=== PATIENT | female | born 1975 ===

== ENCOUNTER 2017-03-05 08:41 | Emergency (ER) | payer BC ==
--- NOTE | 2017-03-05 09:07 | UC ---
Throat Pain/Nasal [place] HPI - HPI Summary HPI Summary: 41 Y/O female presents with C/O throat pain x 1 day with fever, chills and vomiting x 1 episode. Denies dyspnea, cough, abdominal pain, or nausea today. Medications and medical history reviewed during this visit. - History of Current Complaint Chief Complaint: UCGeneralIllness Stated Complaint: THROAT PAIN Time Seen by Provider: 03/05/17 08:53 Hx Last Menstrual Period: mirena - Allergies/Home Medications Allergies/Adverse Reactions: Allergies Allergy/AdvReac Type Severity Reaction Status Date / Time No Known Allergies Allergy Verified 03/05/17 08:44 Home Medications: Home Medications Escitalopram (NF) [Lexapro 10 mg (NF)] 10 mg PO DAILY 03/05/17 [History Confirmed 03/05/17] Levonorgestrel (Iud) [Mirena IUD] 1 03/05/17 [History] Loratadine 10 mg PO DAILY 03/05/17 [History Confirmed 03/05/17] Multiple Vitamin [Multi Vitamin] 1 tab PO DAILY 03/05/17 [History Confirmed ] PMH/Surg Hx/FS Hx/Imm Hx Previously Healthy: Yes - Surgical History Surgical History: None - Family History Known Family History: Positive: None - Social History Occupation: Employed Full-time Alcohol Use: Occasionally Substance Use Type: None Smoking Status (MU): Never Smoked Tobacco Review of Systems Constitutional: Fever, Chills Skin: Negative Eyes: Negative ENT: Negative Respiratory: Negative Cardiovascular: Negative Gastrointestinal: Negative Genitourinary: Negative Motor: Negative Neurovascular: Negative Musculoskeletal: Arthralgia Neurological: Negative Psychological: Negative Is Patient Immunocompromised?: No All Other Systems Reviewed And Are Negative: Yes Physical Exam Triage Information Reviewed: Yes Appearance: Well-Appearing Vital Signs: Initial Vital Signs Temp 98.8 F 03/05/17 08:46 Pulse 89 03/05/17 08:46 Resp 18 03/05/17 08:46 BP 117/72 03/05/17 08:46 Pulse Ox 100 03/05/17 08:46 Vital Signs Reviewed: Yes Eye Exam: Normal ENT: Positive: Pharyngeal erythema Neck exam: Normal Neck: Positive: Nontender, No Lymphadenopathy Respiratory Exam: Normal Respiratory: Positive: Lungs clear, Normal breath sounds Cardiovascular Exam: Normal Cardiovascular: Positive: RRR Abdominal Exam: Normal Abdomen Description: Positive: Nontender Bowel Sounds: Positive: Present Musculoskeletal Exam: Normal Musculoskeletal: Positive: Strength Intact Neurological Exam: Normal Neurological: Positive: Alert Psychological Exam: Normal Skin Exam: Normal Throat Pain/Nasal Course/Dx - Differential Dx/Diagnosis Differential Diagnosis/HQI/PQRI: Pharyngitis, Tonsillitis, URI Provider Diagnoses: Strep Throat Discharge - Discharge Plan Condition: Stable Disposition: HOME Patient Education Materials: Strep Throat (ED) Additional Instructions: Your rapid strep screening was positive. You have been prescribed an antibiotic , please take as directed. Follow up with your primary care provider or return to the urgent care if symptoms do not improve or if you are unable to swallow liquids.
== END 2017-03-05 09:31 | disposition home or self-care (01) ==
LOC: UCEAST 08:41
DX: J02.0 Streptococcal pharyngitis (principal)
CPT/HCPCS: 87651; 99202; G0463

== ENCOUNTER 2018-08-28 10:46 | Emergency (ER) | payer BC ==
[2018-08-28 11:16] VITALS: BP 115/80
--- NOTE | 2018-08-28 11:19 | UC ---
Respiratory Complaint HPI - HPI Summary HPI Summary: 43 yo female presents with cough and sinus pain/pressure/congestion for the last week. She tells me that last night her cough got worse and she felt a little short of breath and developed a productive cough. She has a history of asthma and has been using her albuterol inhaler with mild relief. She has not been taking anything OTC. Denies fever, chills, sore throat, chest pain, rash. - History of Current Complaint Chief Complaint: UCRespiratory Stated Complaint: CHEST CONGESTION Time Seen by Provider: 08/28/18 11:19 Hx Obtained From: Patient Hx Last Menstrual Period: IUD in place Onset/Duration: Gradual Onset Severity Initially: Mild Severity Currently: Moderate Pain Intensity: 4 Pain Scale Used: 0-10 Numeric Character: Cough: Productive - Allergies/Home Medications Allergies/Adverse Reactions: Allergies Allergy/AdvReac Type Severity Reaction Status Date / Time environmental Allergy Congestion Uncoded 08/28/18 11:16 Home Medications: Home Medications Albuterol HFA INHALER* [Ventolin HFA Inhaler*] 1 puff INH Q4H PRN 08/28/18 [ History Confirmed 08/28/18] Calcium Carbonate [Calcium/C/D] 1 chw PO DAILY 08/28/18 [History Confirmed 08/28] Slovan-3 Fatty Acids/Fish Oil [Fish Oil 1,000 mg Softgel] 1 tab PO DAILY [History Confirmed 08/28/18] PMH/Surg Hx/FS Hx/Imm Hx Respiratory History: Asthma Psychological History: Anxiety, Depression - Surgical History Surgical History: Yes Surgery Procedure, Year, and Place: D&C - Family History Known Family History: Positive: None - Social History Occupation: Employed Full-time Lives: With Family Alcohol Use: Occasionally Substance Use Type: None Smoking Status (MU): Never Smoked Tobacco Review of Systems All Other Systems Reviewed And Are Negative: Yes Constitutional: Positive: Negative Skin: Positive: Negative Eyes: Positive: Negative ENT: Positive: Nasal Discharge, Sinus Congestion, Sinus Pain/Tenderness Respiratory: Positive: Cough Cardiovascular: Positive: Negative Gastrointestinal: Positive: Negative Neurovascular: Positive: Negative Neurological: Positive: Negative Psychological: Positive: Negative Physical Exam - Summary Physical Exam Summary: GENERAL: NAD. WDWN. No pain distress. SKIN: No rashes, sores, lesions, or open wounds. HEENT: Head: AT/NC Eyes: Conjunctiva clear without inflammation or discharge. Ears: Hearing grossly normal. TMs intact, no bulging, erythema, or edema. Nose: Nasal mucosa pink and moist. NTTP maxillary and frontal sinus. Throat: Posterior oropharynx without exudates, erythema, or tonsillar enlargement. Uvula midline. NECK: Supple. Nontender. No lymphadenopathy. CHEST: Mild wheezing throughout. No r/r. No accessory muscle use. Breathing comfortably and in no distress. CV: RRR. Without m/r/g. Pulses intact. Cap refill <2seconds NEURO: Alert. PSYCH: Age appropriate behavior. Triage Information Reviewed: Yes Vital Signs: Initial Vital Signs Temp 97.8 F 08/28/18 11:12 Pulse 74 08/28/18 11:12 Resp 18 08/28/18 11:12 BP 115/80 08/28/18 11:12 Pulse Ox 100 08/28/18 11:12 Vital Signs Reviewed: Yes Respiratory Course/Dx - Course Course Of Treatment: XR: IMPRESSION: No active cardiopulmonary disease is noted. DUONEB: Improvement s/p. Easier to take a deep breath Suspect asthma exacerbation vs bronchitis. Discussed viral vs bacterial etiology and pt prefers to be on antibiotics at this time. - Differential Dx/Diagnosis Provider Diagnosis: Bronchitis Discharge - Sign-Out/Discharge Documenting (check all that apply): Patient Departure All imaging exams completed and their final reports reviewed: Yes - Discharge Plan Condition: Stable Disposition: HOME Prescriptions: Amoxicillin PO (*) [Amoxicillin 875 MG (*)] 875 mg PO BID #14 tab Patient Education Materials: Acute Bronchitis (ED) Referrals: No Primary Care Phys,NOPCP [Primary Care Provider] - Additional Instructions: If you develop a fever, shortness of breath, chest pain, new or worsening symptoms - please call your PCP or go to the ED. Continue to use your inhaler as directed - Billing Disposition and Condition Condition: STABLE Disposition: Home
[2018-08-28] MEDS ORDERED: Albuterol/Ipratropium NEB.SOL* Albuterol 2.5 MG/Ipratropium 0.5 MG 3 ML INH ONE (11:24)
== END 2018-08-28 12:12 | disposition home or self-care (01) ==
LOC: UCEAST 10:46
DX: J45.909 Unspecified asthma, uncomplicated (principal)
CPT/HCPCS: 71046; 99212; A9270-GY; G0463